=== PATIENT | male | born 1960 | race Caucasian/White ===

== ENCOUNTER 2019-08-26 08:11 | Observation (INO) | payer BC ==
[2019-08-24 16:36] VITALS: BMI 23.7
[~2019-08-26] VITALS: Ht 177.8 cm; Wt 70.4 kg
[2019-08-26] VITALS (38 sets, daily range): BP systolic 84–144; BP diastolic 43–82; PULSE 54–60; RESP 10–21; Ht 177.8 cm; Wt 70.4 kg
[~2019-08-26 08:11] MED LIST: ALLO100T PO; ASPI81TA52 PO; ATOR40TA68 PO; BUME1TAB3 PO; CARV12.579 PO; CLOP75TA27 PO; DOCU-144 PO; ENAL5TAB PO; FLUT9.9S NASAL; FURO80TA3 PO; HYDR-3671 PO; INSU100I33 SC; ISOS60TA PO; LINA5TAB PO; LORA10CA PO; LYR75 PO; MAGN400T27 PO; METO5TAB2 PO; METO5TAB65 PO; MULTI PO; MYCO250C3 PO; MYCO500T PO; NITR0.4T39 SL; NOVO3I SC; PANT40TA3 PO; PRED5TAB PO; TACR1CAP PO; TADA20TA PO; TAMS-14 PO; TRAM50TA2 PO
[2019-08-26] MEDS ORDERED: CYCLOBENZAPRINE 10 MG TAB PO PRN (10:00)
[2019-08-26] MEDS ORDERED: DIPHENHYDRAMINE 25 MG CAP PO PRN (10:00)
[2019-08-26] MEDS ORDERED: PROCHLORPERAZINE 10 MG TAB PO PRN (10:00)
[2019-08-26] MEDS ORDERED: ONDANSETRON 4 MG INJ IV PRN ×3 (10:00→15:30)
[2019-08-26] MEDS ORDERED: CEFAZOLIN 1 GM/50 ML (PMX) 50 ML IVPB SCH (10:00)
[2019-08-26] MEDS ORDERED: NALOXONE (0.4 MG/ML) INJ IV PRN (10:00)
[2019-08-26] MEDS ORDERED: POLYMYXIN/BACITRACIN 1L IRRIG ONE (10:29)
[2019-08-26] MEDS ORDERED: IPRATROPIUM (NEB) 0.5 MG/2.5 ML AMP HHN PRN ×2 (10:30→16:00)
[2019-08-26] MEDS ORDERED: MIDAZOLAM 1 MG/ML 2 ML INJ IV PRN ×2 (10:30→16:00)
[2019-08-26] MEDS ORDERED: FENTAnyl 50 MCG/ML VIAL IV PRN ×5 (10:30→15:30)
[2019-08-26] MEDS ORDERED: EPHEDrine 25 MG/5 ML SYG IV PRN ×2 (10:30→16:00)
[2019-08-26] MEDS ORDERED: hydrALAzine 20 MG INJ IV PRN (10:30)
[2019-08-26] MEDS ORDERED: DIPHENHYDRAMINE 50 MG INJ IV PRN ×2 (10:30→16:00)
[2019-08-26] MEDS ORDERED: TRIMETHOBENZAMIDE 100 MG/ML VIAL IM PRN ×2 (10:30→16:00)
[2019-08-26] MEDS ORDERED: LABETALOL HCL 20MG INJ IV PRN ×2 (10:30→16:00)
[2019-08-26] MEDS ORDERED: ALBUTEROL 0.083% (NEB) 2.5 MG/3 ML AMP HHN PRN ×2 (10:30→16:00)
[2019-08-26] MEDS ORDERED: MIDAZOLAM 1 MG/ML 2 ML INJ ONE (10:33)
[2019-08-26] MEDS ORDERED: ONDANSETRON 4 MG INJ ONE (10:33)
[2019-08-26] MEDS ORDERED: CEFAZOLIN 1 GM INJ ONE (10:33)
[2019-08-26] MEDS ORDERED: ROCURONIUM 50 MG INJ ONE (10:33)
[2019-08-26] MEDS ORDERED: GLYCOPYRROLATE 0.4 MG INJ ONE (10:33)
[2019-08-26] MEDS ORDERED: DEXAMETHASONE 4 MG/ML 5 ML INJ ONE (10:33)
[2019-08-26] MEDS ORDERED: NEOSTIGMINE 3 MG/3 ML SYRINGE ONE (10:33)
[2019-08-26] MEDS ORDERED: FENTAnyl 50 MCG/ML VIAL ONE ×4 (10:33→15:23)
[2019-08-26] MEDS ORDERED: PROPOFOL 20 ML ONE (10:33)
[2019-08-26] MEDS ORDERED: HYDROCORTISONE 100 MG INJ ONE (10:34)
[2019-08-26] MEDS ORDERED: THROMBIN 5000 UNIT (RECOTHROM) VIAL ONE (11:10)
[2019-08-26] MEDS ORDERED: GELATIN SIZE 100 SPONGE ONE (11:10)
[2019-08-26] MEDS ORDERED: BUPIVACAINE 0.5%/EPI (SDV) 30 ML INJ ONE (11:10)
[2019-08-26] MEDS ORDERED: ETOMIDATE 20 MG INJ ONE (11:24)
[2019-08-26] MEDS ORDERED: CA CHLORIDE 10% 10 ML SYRINGE ONE (11:36)
[2019-08-26] MEDS ORDERED: SUGAMMADEX SODIUM 200 MG/2 ML VIAL IV ONE (13:06)
[2019-08-26] MEDS: HYDROCORTISONE 100 MG INJ IV SCH ×2 (14:27→22:24)
[2019-08-26] MEDS: DOCUSATE SODIUM 100 MG CAP PO SCH ×2 (14:30→20:40)
[2019-08-26] MEDS: MYCOPHENOLATE 250 MG CAP PO SCH ×2 (14:30→21:12)
[2019-08-26] MEDS ORDERED: TACROLIMUS 1 MG CAP PO SCH (14:30)
[2019-08-26] MEDS: PANTOPRAZOLE (EC) 40 MG TAB PO SCH (14:30)
[2019-08-26] MEDS: TAMSULOSIN (SR) 0.4 MG CAP PO SCH (14:30)
[2019-08-26] MEDS: ALLOPURINOL 100 MG TAB PO SCH (14:30)
[2019-08-26] MEDS: FLUTICASONE 0.05% 16 GM NAS SPRAY NASAL SCH (14:30)
[2019-08-26] MEDS: SOD CHLORIDE 0.9% 1,000 ML IV SCH ×2 (14:32→17:19)
[2019-08-26] MEDS ORDERED: GLUCOSE GEL 15 GRAM TUBE PO PRN ×2 (15:00)
[2019-08-26] MEDS ORDERED: GLUCAGON 1 MG INJ IM PRN (15:00)
[2019-08-26] MEDS ORDERED: GLUCOSE GEL 15 GRAM TUBE BUCCAL PRN (15:00)
[2019-08-26] MEDS ORDERED: NA POLYST SULFON 15 GM/60 ML BTL PO ONE (15:00)
[2019-08-26] MEDS ORDERED: DEXTROSE 50% 50 ML SYRINGE IV PRN ×2 (15:00)
[2019-08-26] MEDS: FENTAnyl 50 MCG/ML VIAL IV PRN ×3 (15:52→17:56)
[2019-08-26] MEDS: TACROLIMUS 0.5 MG CAP PO SCH ×2 (16:00→21:12)
[2019-08-26] MEDS: TACROLIMUS 1 MG CAP PO SCH ×2 (16:00→21:12)
[2019-08-26] MEDS: INSULIN ASPART [NOVOLOG] 3 ML PEN SC SCH ×2 (18:00→21:19)
[2019-08-26] MEDS: traMADol 50 MG TAB PO PRN (19:49)
[2019-08-26] MEDS: DIPHENHYDRAMINE 50 MG INJ IV PRN (20:40)
[2019-08-26] MEDS: ATORVASTATIN 40 MG TAB PO SCH (20:41)
[2019-08-26] MEDS ORDERED: INSULIN GLARGINE [LANtus] 3 ML PEN SC SCH (21:00)
[2019-08-27] MEDS ORDERED: morphine 4 MG/ML VIAL IV PRN (01:00)
[2019-08-27 02:25] VITALS: BP 148/72; PULSE 61; RESP 20
[2019-08-27 05:00] VITALS: BP 142/78; PULSE 62; RESP 18
[2019-08-27] MEDS: HYDROCORTISONE 100 MG INJ IV SCH (06:31)
[2019-08-27] MEDS: INSULIN ASPART [NOVOLOG] 3 ML PEN SC SCH ×5 (08:48→21:00)
[2019-08-27] MEDS ORDERED: NA POLYST SULFON 15 GM/60 ML BTL PO ONE ×2 (09:00→11:00)
[2019-08-27] MEDS ORDERED: ASPIRIN (EC) 81 MG TAB PO SCH (09:00)
[2019-08-27] MEDS ORDERED: ENALAPRIL 5 MG TAB PO SCH (09:00)
[2019-08-27] MEDS: ALLOPURINOL 100 MG TAB PO SCH (09:08)
[2019-08-27] MEDS: LORATADINE 10 MG TAB PO SCH (09:08)
[2019-08-27] MEDS: DOCUSATE SODIUM 100 MG CAP PO SCH ×2 (09:08→21:15)
[2019-08-27] MEDS: FLUTICASONE 0.05% 16 GM NAS SPRAY NASAL SCH (09:08)
[2019-08-27] MEDS: predniSONE 5 MG TAB PO SCH (09:09)
[2019-08-27] MEDS: TAMSULOSIN (SR) 0.4 MG CAP PO SCH (09:09)
[2019-08-27] MEDS: MULTIVITAMINS THERAPEUTIC TAB PO SCH (09:09)
[2019-08-27] MEDS: LINAGLIPTIN 5 MG TABLET PO SCH (09:10)
[2019-08-27] MEDS: TACROLIMUS 1 MG CAP PO SCH (09:11)
[2019-08-27] MEDS: TACROLIMUS 0.5 MG CAP PO SCH (09:11)
[2019-08-27] MEDS: ISOSORBIDE MONONITRATE(SR)60 MG TAB PO SCH (09:11)
[2019-08-27] MEDS: PREGABALIN 75 MG CAP PO SCH ×2 (09:13→21:15)
[2019-08-27] MEDS: MYCOPHENOLATE 250 MG CAP PO SCH ×2 (09:13→21:16)
[2019-08-27] MEDS: ACETAMINOPHEN 325 MG TAB PO PRN ×2 (09:14→23:03)
[2019-08-27] MEDS: PANTOPRAZOLE (EC) 40 MG TAB PO SCH (09:15)
[2019-08-27 09:24] VITALS: BP 109/53; PULSE 63; RESP 18
[2019-08-27] MEDS: SODIUM BICARBONATE (IV ADD) 100 MEQ in SOD CHLORIDE 0.45% 1,000 ML IV SCH (11:30)
[2019-08-27] MEDS: CITRIC ACID/NA CITRATE 30 ML CUP PO SCH ×3 (11:30→21:15)
[2019-08-27] MEDS: CEPASTAT LOZENGE MT PRN (11:38)
[2019-08-27 14:00] VITALS: BP 115/63; PULSE 60
[2019-08-27 15:00] VITALS: BP 115/63; PULSE 60; RESP 18
[2019-08-27 19:33] VITALS: BP 120/60; PULSE 66; RESP 20
[2019-08-27] MEDS: ATORVASTATIN 40 MG TAB PO SCH (21:16)
[2019-08-27] MEDS: INSULIN GLARGINE [LANTus] (100 UNITS/ML) SYG SC SCH (21:17)
[2019-08-27] MEDS ORDERED: NITROGLYCERIN (SL) 0.4 MG TAB SL PRN (23:30)
[2019-08-28 02:40] VITALS: BP 117/59; PULSE 77; RESP 20
[2019-08-28] MEDS: traMADol 50 MG TAB PO PRN ×2 (08:02→21:46)
[2019-08-28] MEDS: INSULIN ASPART [NOVOLOG] 3 ML PEN SC SCH ×4 (08:05→21:41)
[2019-08-28] MEDS: MYCOPHENOLATE 250 MG CAP PO SCH ×2 (08:41→21:38)
[2019-08-28] MEDS: CITRIC ACID/NA CITRATE 30 ML CUP PO SCH ×3 (08:41→12:07)
[2019-08-28] MEDS: TAMSULOSIN (SR) 0.4 MG CAP PO SCH (08:42)
[2019-08-28] MEDS: DOCUSATE SODIUM 100 MG CAP PO SCH ×2 (08:42→21:37)
[2019-08-28] MEDS: LINAGLIPTIN 5 MG TABLET PO SCH (08:42)
[2019-08-28] MEDS: ALLOPURINOL 100 MG TAB PO SCH (08:42)
[2019-08-28] MEDS: LORATADINE 10 MG TAB PO SCH (08:42)
[2019-08-28] MEDS: PANTOPRAZOLE (EC) 40 MG TAB PO SCH (08:42)
[2019-08-28] MEDS: MULTIVITAMINS THERAPEUTIC TAB PO SCH (08:43)
[2019-08-28] MEDS: ISOSORBIDE MONONITRATE(SR)60 MG TAB PO SCH (08:43)
[2019-08-28] MEDS: FLUTICASONE 0.05% 16 GM NAS SPRAY NASAL SCH (08:44)
[2019-08-28] MEDS: PREGABALIN 75 MG CAP PO SCH ×2 (08:47→21:39)
[2019-08-28] MEDS: predniSONE 5 MG TAB PO SCH (08:47)
[2019-08-28] MEDS: SODIUM BICARBONATE (IV ADD) 100 MEQ in SOD CHLORIDE 0.45% 1,000 ML IV SCH ×2 (09:30→15:10)
[2019-08-28 15:27] VITALS: BP 110/79; PULSE 84; RESP 18
[2019-08-28 19:49] VITALS: BP 112/55; PULSE 60; RESP 20
[2019-08-28] MEDS: ACETAMINOPHEN 325 MG TAB PO PRN (20:23)
[2019-08-28] MEDS: NA BICARBONATE 650 MG TAB PO SCH (21:37)
[2019-08-28] MEDS: TACROLIMUS 1 MG CAP PO SCH (21:37)
[2019-08-28] MEDS: TACROLIMUS 0.5 MG CAP PO SCH (21:37)
[2019-08-28] MEDS: ATORVASTATIN 40 MG TAB PO SCH (21:38)
[2019-08-28] MEDS: INSULIN GLARGINE [LANTus] (100 UNITS/ML) SYG SC SCH (21:40)
[2019-08-29 02:27] VITALS: BP 114/68; PULSE 72; RESP 18
[2019-08-29] MEDS: CEPASTAT LOZENGE MT PRN (02:43)
[2019-08-29] MEDS: FLUTICASONE 0.05% 16 GM NAS SPRAY NASAL SCH (03:59)
[2019-08-29] MEDS: DIPHENHYDRAMINE 50 MG INJ IV PRN (05:15)
[2019-08-29] MEDS: INSULIN ASPART [NOVOLOG] 3 ML PEN SC SCH ×2 (07:30→12:09)
[2019-08-29 07:51] VITALS: BP 132/62; PULSE 80; RESP 18
[2019-08-29] MEDS: ACETAMINOPHEN 325 MG TAB PO PRN (08:36)
[2019-08-29] MEDS: TACROLIMUS 1 MG CAP PO SCH (08:36)
[2019-08-29] MEDS: PANTOPRAZOLE (EC) 40 MG TAB PO SCH (08:36)
[2019-08-29] MEDS: NA BICARBONATE 650 MG TAB PO SCH (08:36)
[2019-08-29] MEDS: LINAGLIPTIN 5 MG TABLET PO SCH (08:36)
[2019-08-29] MEDS: MULTIVITAMINS THERAPEUTIC TAB PO SCH (08:36)
[2019-08-29] MEDS: TACROLIMUS 0.5 MG CAP PO SCH (08:36)
[2019-08-29] MEDS: DOCUSATE SODIUM 100 MG CAP PO SCH (08:37)
[2019-08-29] MEDS: TAMSULOSIN (SR) 0.4 MG CAP PO SCH (08:37)
[2019-08-29] MEDS: ISOSORBIDE MONONITRATE(SR)60 MG TAB PO SCH (08:37)
[2019-08-29] MEDS: MYCOPHENOLATE 250 MG CAP PO SCH (08:37)
[2019-08-29] MEDS: ALLOPURINOL 100 MG TAB PO SCH (08:37)
[2019-08-29] MEDS: LORATADINE 10 MG TAB PO SCH (08:38)
[2019-08-29] MEDS: predniSONE 5 MG TAB PO SCH (08:38)
[2019-08-29] MEDS: PREGABALIN 75 MG CAP PO SCH (08:39)
[2019-08-29 14:07] VITALS: BP 130/68; PULSE 71; RESP 18
== END 2019-08-29 15:55 | disposition home or self-care (01) ==
LOC: SDS 08:11 → REC 08:11 → UNDOADMIN 08:11 → SDS 10:06 → REC 13:43 → EDSTATUS 14:00 → MS1 18:15
PROVIDERS: ADMIT Orthopaedic Surgery Orthopaedic Surgery of the Spine; ATTEND Orthopaedic Surgery Orthopaedic Surgery of the Spine
DX: M50.023 Cervical disc disorder at C6-C7 level with myelopathy (principal); M50.122 Cervical disc disorder at C5-C6 level with radiculopathy; M50.123 Cervical disc disorder at C6-C7 level with radiculopathy; M48.02 Spinal stenosis, cervical region; I10 Essential (primary) hypertension; I25.10 Atherosclerotic heart disease of native coronary artery without angina pectoris; E11.9 Type 2 diabetes mellitus without complications; Z79.4 Long term (current) use of insulin; Z94.0 Kidney transplant status; Z79.899 Other long term (current) drug therapy
CPT/HCPCS: 20931; 22551; 22552; 22853; 36430; 72040; 72050; 73030; 80048; 80053; 82962; 84132; 85014; 85018; 85025; 85610; 85730; 86850; 86900; 86901; 86920; 86999; 88304; 97110; 97116; 97161; 97530; 99217; C1713; G0378; J0690; J1100; J1200; J1720; J1815; J2250; J2270; J2405; J3010; J7030; J7507; J7512; J7517; P9016; J2710